=== PATIENT | female | born 1980 | race Caucasian/White ===

== ENCOUNTER → 2018-06-11 15:53 | Outpatient (CLI) | payer OTHER, SELFPAY ==
[2018-06-11 17:00] LABS: Alanine Aminotransferase 27 IU/L (9-52); Albumin 4.7 g/dL (3.5-5.0); Albumin Globulin Ratio 1.7 (1.0-2.8); Alkaline Phosphatase 51 U/L (38-126); Aspartate Aminotransferase 21 IU/L (14-36); Bilirubin Total 0.6 mg/dL (0.2-1.3); Blood Urea Nitrogen 18 mg/dL (7-17); Calcium 9.4 mg/dL (8.4-10.2); Carbon Dioxide 24 mmol/L (22-32); Chloride 104 mmol/L (98-107); Cholesterol 161 mg/dL (140-199); Estimated Glomerular Filt Rate > 60.0 mL/min (>60); Globulin 2.7 g/dL (1.7-4.1); Glucose 85 mg/dL (70-100); HDL Cholesterol 75 mg/dL (40-60); HEMOLYSIS < 15 (0-50); LDL Cholesterol Calculated 68 mg/dL (<100); Potassium 4.3 mmol/L (3.4-5.1); Sodium 139 mmol/L (137-145); Total Protein 7.4 g/dL (6.3-8.2); Triglycerides 89 mg/dL (35-150)
== END ==
PROVIDERS: Family Provider Family Medicine; PCP Family Medicine; Visit Provider Family Medicine
DX: R10.11 Right upper quadrant pain (principal); Z13.1 Encounter for screening for diabetes mellitus; Z13.220 Encounter for screening for lipoid disorders
CPT/HCPCS: 36415; 80053; 80061

== ENCOUNTER → 2018-06-17 15:20 | Outpatient (CLI) | payer OTHER, SELFPAY ==
--- NOTE | 2018-06-17 15:22 | DI.MG.S_ITS ---
BILATERAL DIGITAL SCREENING MAMMOGRAM 3D/2D WITH CAD: 06/17/2018 CLINICAL: Routine screening. No prior exams were available for comparison. The tissue of both breasts is extremely dense, which lowers the sensitivity of mammography. Current study was also evaluated with a Computer Aided Detection (CAD) system. No significant masses, calcifications, or other findings are seen in either breast. IMPRESSION: NEGATIVE There is no mammographic evidence of malignancy. A 1 year screening mammogram is recommended. This exam was interpreted at Station ID: [id number]. NOTE: For mammograms, a report in lay terms will be sent to the patient. Approximately 15% of breast malignancies will not be visualized mammographically. In the management of a palpable breast mass, a negative mammogram must not discourage biopsy of a clinically suspicious lesion. Electronically Signed By: Thony aparicio/maikel:06/17/2018 16:40:54 letter sent: Normal Exam ACR BI-RADS Category 1: Negative 3341F
== END ==
PROVIDERS: Family Provider Family Medicine; PCP Family Medicine; Visit Provider Family Medicine
DX: Z12.31 Encounter for screening mammogram for malignant neoplasm of breast (principal)
CPT/HCPCS: 77063; 77067

== ENCOUNTER → 2019-06-18 08:18 | Outpatient (CLI) | payer OTHER, SELFPAY ==
--- NOTE | 2019-06-18 08:19 | DI.MG.S_ITS ---
BILATERAL DIGITAL SCREENING MAMMOGRAM 3D/2D WITH CAD: 06/18/2019 CLINICAL: Routine screening. Comparison is made to exam dated: 06/17/2018 [facility]. The tissue of both breasts is extremely dense, which lowers the sensitivity of mammography. Current study was also evaluated with a Computer Aided Detection (CAD) system. No significant masses, calcifications, or other findings are seen in either breast. There has been no significant interval change. IMPRESSION: NEGATIVE There is no mammographic evidence of malignancy. A 1 year screening mammogram is recommended. This exam was interpreted at Station ID: [id number]. NOTE: For mammograms, a report in lay terms will be sent to the patient. Approximately 15% of breast malignancies will not be visualized mammographically. In the management of a palpable breast mass, a negative mammogram must not discourage biopsy of a clinically suspicious lesion. Electronically Signed By: Radha avalos/maikel:06/21/2019 08:31:05 letter sent: Normal Exam ACR BI-RADS Category 1: Negative 3341F
== END ==
PROVIDERS: Family Provider Family Medicine; PCP Family Medicine; Referring Provider Family Medicine; Visit Provider Family Medicine
DX: Z12.31 Encounter for screening mammogram for malignant neoplasm of breast (principal)
CPT/HCPCS: 77063; 77067

== ENCOUNTER → 2020-07-20 07:03 | Outpatient (CLI) | payer OTHER, SELFPAY ==
[2020-07-20 08:12] LABS: Add Manual Diff / Slide Review NO; Basophils Absolute Auto 0 /uL (0-100); Basophils Percent Auto 0.6 % (0-2); Eosinophils Absolute Auto 300 /uL (0-450); Eosinophils Percent Auto 4.1 % (2-4); Hematocrit 39.9 % (36-46); Hemoglobin 13.7 g/dL (12.0-16.0); Lymphocytes Absolute Auto 1800 /uL (1100-4500); Lymphocytes Percent Auto 26.3 % (25-40); Mean Corpuscular HGB Conc 34.4 % (30-36); Mean Corpuscular Hemoglobin 29.9 PG (26-34); Monocytes Absolute Auto 400 /uL (0-900); Monocytes Percent Auto 5.6 % (3-14); Neutrophils Absolute Auto 4400 /uL (1500-7000); Neutrophils Percent Auto 63.4 % (50-75); Platelet Count 241 X10^3/uL (150-400); Red Blood Cell Count 4.58 X10^6/uL (4.0-5.2); Red Cell Distribution Width 12.5 % (11.6-14.8); White Blood Cell Count 6.9 X10^3/uL (4.5-11.0)
[2020-07-20 08:27] LABS: Alanine Aminotransferase 14 IU/L (<35); Albumin 4.7 g/dL (3.5-5.0); Albumin Globulin Ratio 1.7 (1.0-2.8); Alkaline Phosphatase 46 U/L (38-126); Aspartate Aminotransferase 21 IU/L (14-36); BUN Creatinine Ratio 17.4 (6-22); Bilirubin Total 0.6 mg/dL (0.2-1.3); Blood Urea Nitrogen 16 mg/dL (7-17); Calcium 9.4 mg/dL (8.4-10.2); Carbon Dioxide 27 mmol/L (22-32); Chloride 106 mmol/L (98-107); Cholesterol 152 mg/dL (140-199); Estimated Glomerular Filt Rate > 60.0 mL/min (>60); Globulin 2.8 g/dL (1.7-4.1); Glucose 94 mg/dL (70-100); HDL Cholesterol 52 mg/dL (40-60); HEMOLYSIS < 15 (0-50); LDL Cholesterol Calculated 82 mg/dL (<100); Potassium 4.4 mmol/L (3.4-5.1); Sodium 139 mmol/L (137-145); Total Protein 7.5 g/dL (6.3-8.2); Triglycerides 89 mg/dL (35-150)
[2020-07-20 09:13] LABS: TSH w/ Reflex to FT4 2.28 uIU/mL (0.47-4.68)
== END ==
PROVIDERS: Family Provider Family Medicine; PCP Family Medicine; Referring Provider Family Medicine; Visit Provider Family Medicine
DX: Z00.00 Encounter for general adult medical examination without abnormal findings (principal)
CPT/HCPCS: 36415; 80053; 80061; 84443; 85025

== ENCOUNTER → 2021-10-12 08:20 | Outpatient (CLI) | payer OTHER, SELFPAY ==
[2021-10-12 09:22] LABS: Add Manual Diff / Slide Review NO; Basophils Absolute Auto 0 /uL (0-100); Basophils Percent Auto 0.4 % (0-2); Eosinophils Absolute Auto 200 /uL (0-450); Eosinophils Percent Auto 3.2 % (2-4); Hematocrit 39.1 % (36-46); Hemoglobin 13.8 g/dL (12.0-16.0); Lymphocytes Absolute Auto 1700 /uL (1100-4500); Lymphocytes Percent Auto 22.7 % (25-40); Mean Corpuscular HGB Conc 35.3 % (30-36); Mean Corpuscular Hemoglobin 30.1 PG (26-34); Mean Corpuscular Volume 85.4 fL (80-100); Monocytes Absolute Auto 400 /uL (0-900); Monocytes Percent Auto 5.3 % (3-14); Neutrophils Absolute Auto 5000 /uL (1500-7000); Neutrophils Percent Auto 68.4 % (50-75); Platelet Count 236 X10^3/uL (150-400); Red Blood Cell Count 4.58 X10^6/uL (4.0-5.2); Red Cell Distribution Width 12.5 % (11.6-14.8); White Blood Cell Count 7.3 X10^3/uL (4.5-11.0)
[2021-10-12 09:49] LABS: Alanine Aminotransferase 14 IU/L (<35); Albumin 4.3 g/dL (3.5-5.0); Albumin Globulin Ratio 1.5 (1.0-2.8); Alkaline Phosphatase 44 U/L (38-126); Aspartate Aminotransferase 22 IU/L (14-36); BUN Creatinine Ratio 19.3 (6-22); Bilirubin Total 0.5 mg/dL (0.2-1.3); Blood Urea Nitrogen 16 mg/dL (7-17); Calcium 8.6 mg/dL (8.4-10.2); Carbon Dioxide 22 mmol/L (22-32); Chloride 110 mmol/L (98-107); Cholesterol 160 mg/dL (140-199); Estimated Glomerular Filt Rate > 60 mL/min (>60); Globulin 2.9 g/dL (1.7-4.1); Glucose 91 mg/dL (70-100); HDL Cholesterol 58 mg/dL (40-60); HEMOLYSIS 29 (0-50); LDL Cholesterol Calculated 91 mg/dL (<100); Potassium 4.3 mmol/L (3.4-5.1); Sodium 139 mmol/L (137-145); Total Protein 7.2 g/dL (6.3-8.2); Triglycerides 57 mg/dL (35-150)
[2021-10-12 10:05] LABS: TSH w/ Reflex to FT4 1.44 uIU/mL (0.47-4.68)
[2021-10-12 10:32] LABS: Follicle Stimulating Hormone 9.48 mIU/mL; Luteinizing Hormone 6.24 mIU/mL
== END ==
PROVIDERS: Family Provider Family Medicine; PCP Family Medicine; Referring Provider Family Medicine; Visit Provider Family Medicine
DX: N92.6 Irregular menstruation, unspecified (principal); N95.1 Menopausal and female climacteric states
CPT/HCPCS: 36415; 80053; 80061; 83001; 83002; 84443; 85025

== ENCOUNTER 2022-08-19 13:48 | Day surgery (SDC) | payer OTHER, SELFPAY ==
[2022-07-17 12:06] VITALS: BMI 29.8
[2022-08-19 14:03] VITALS: BMI 29.8
[2022-08-19 14:12] VITALS: BP 134/83; PULSE 86; RESP 16; TEMP 36.5; O2SAT 100
--- NOTE | 2022-08-19 15:38 | PM.HP.1 ---
History of Present Illness History of Present Illness Date Patient Seen: 08/19/22 Time Patient Seen: 15:38 Chief complaint: [facility] [place] Narrative: Andres was seen in my office 06/27/22 she tells me that today not much has changed in her symptoms. She still has the same area just above her umbilicus that is tender to the touch and feels like there is a lump underneath of it. This is a site where she actually had a drain coming from after surgery. Complicated appendectomy in 2015. She wonders if that area actually never fully healed or closed. Otherwise she is eating normally and not complaining of nausea or other digestive issues but the pain is persistent and she would like to proceed with the repair. Ultrasound done around the time of the visit showed a supra umbilical hernia. [facility] Medical History Eustachian tube dysfunction Surgical History History of appendectomy (~08/2015) Family History Mother Age: 62 Hypertension Grandfather Tobacco use Grandmother Tobacco use Osteoporosis Social History household members: spouse Smoking Status: Never smoker alcohol intake: current Meds Home Medications and Allergies Home Medications Medication Instructions Recorded Confirmed Type No Known Home Medications 05/27/18 06/27/22 History Allergies Allergy/AdvReac Type Severity Reaction Status Date / Time Penicillins [PENICILLINS] Allergy Unknown RASH Verified 08/19/22 14:01 rifaximin [RIFAXIMIN] AdvReac Intermediate Vomiting Verified 08/19/22 14:19 Exam Vital Signs (past 8 hours): - 08/19/22 14:12 Temperature 97.7 F Pulse Rate 86 Respiratory Rate 16 Blood Pressure 134/83 Pulse Oximetry 100 Oxygen Delivery Method Room Air Oxygen Delivery Method Room Air Const General: cooperative, healthy appearing and comfortable Orientation: alert, awake and oriented x3 HENMT Head: normal to inspection Eyes General: appearance normal, both eyes and all related structures Resp Effort & Inspection: normal respiratory effort and able to speak in complete sentences Cardio Pulses: radial pulses present GI Inspection: incision Palpation: soft and tender (Around the hernia location underneath the scar just above the umbilicus) Assessment & Plan Assessment and plan (1) Port-site hernia: Status: Acute Assessment & Plan narrative: Patient would like to pursue repair of this small hernia.? Given that it is quite small I think old-fashioned open repair will do quite well and probably can keep the incision fairly small.? I explained that I usually will place mesh if I can fit it into the defect without disrupting the fascial layers.? If the hernia itself is so small that I would have to open the fascia further to fit mesh I generally will simply repair the hernia with few interrupted sutures.? The risks of the procedure include but are not limited to bleeding infection and damage to underlying structures like bowel.? This is very rare.? She understands the risks and would like to proceed.?
[2022-08-19] MEDS: CEFAZOLIN 2 GM/100 ML PREMIX 100 ML IV (16:20)
--- NOTE | 2022-08-19 16:36 | SUR.OPER ---
Supine on padded OR bed, head on pillow, arms secured on padded arm boards at <90 degrees abduction, legs uncrossed, safety belt at thigh, tape over blanket over lower legs.
[2022-08-19] MEDS: LACTATED RINGERS 1,000 ML 42 ML IV (17:00)
[2022-08-19] MEDS: BUPIVACAINE 0.25% (PF) 30 ML, EPINEPHrine 0.15 MG INJ (17:02)
[2022-08-19 17:20] VITALS: BP 99/51; PULSE 91; RESP 12; TEMP 36.5; O2SAT 98
[2022-08-19 17:25] VITALS: BP 109/61; PULSE 91; RESP 16; TEMP 36.5; O2SAT 99
[2022-08-19 17:30] VITALS: BP 124/69; PULSE 94; RESP 15; TEMP 36.4; O2SAT 98
[2022-08-19] MEDS: OXYCODONE IR 5 MG TABLET PO (17:34)
[2022-08-19] MEDS: HYDROMORPHONE 2 MG INJ IV (17:39)
[2022-08-19 17:40] VITALS: BP 124/69; PULSE 87; RESP 12; O2SAT 99
[2022-08-19] MEDS: ONDANSETRON 4 MG/2 ML INJ IV (17:44)
[2022-08-19 18:02] VITALS: BP 127/69; PULSE 82; RESP 18; TEMP 36.4; O2SAT 99
--- NOTE | 2022-08-26 17:34 | P.OP_ITS ---
Operative Date/Time/Diagnoses Date of procedure: 08/19/22 Pre-op diagnosis: Small port site hernia Post-op diagnosis: same Procedure & Clinicians Procedure: Port site hernia repair Same procedure as scheduled: Yes Indications: This area underlying a previous port site where a drain had been placed in the abdomen is highly symptomatic and tender. Surgeon: Marley Staples Click Yes if Unassisted: Yes Anesthesia Type: General Operative Notes Findings: The defect that was seen was approximately 3 cm in size. There was a small corner of bowel that was incarcerated within it. It was not possible to reduce this small bowel gently without increasing the size of the hernia slightly to release it. The hernia was then repaired with a small Ventralex mesh. Specimen(s): none sent Procedure in detail: Patient was taken to the operating room and placed supine on the operating room table. Antibiotics were administered and bilateral SCDs were in place. General endotracheal anesthesia was induced and a time-out was performed. Next a local anesthetic was infused overlying the area of the port site and hernia. An incision was made overlying this and carried down carefully through the subcutaneous tissues. The hernia defect was delineated by reaching the anterior abdominal wall fascia and dissecting carefully around the hernia sac. The h ernia sac was quite thin and it was apparent that a small piece of small bowel was seen within this sac. The bowel was very tightly incarcerated within the defect. In order to return the bowel to the abdomen and reduced the hernia in a way gentle enough not to cause injury I needed to open the hernia defect slightly to release the sac. After this maneuver the sac returned easily to the abdominal cavity. I used a finger to make sure that there was ample space underlying the fascia to accommodate a small Ventralex mesh. The mesh was then placed into the abdomen and secured to the fascial edge using a 2-0 Prolene suture. Finally an 0 Prolene suture was used to close the fascial defect over top of the mesh. A 3-0 Vicryl was used to close subcutaneous tissues and the skin was closed with a 4-0 Monocryl in a running fashion. The skin was dressed with Steri-Strips and the patient went in good condition to the postoperative care unit the EBL was minimal and there were no complications.
== END 2022-08-19 18:12 | disposition home or self-care (01) ==
PROVIDERS: Family Provider Family Medicine; PCP Family Medicine; Referring Provider Surgery; Visit Provider Surgery
PROC: (CPT 49594; principal; 2022-08-19 15:15)
DX: K43.0 Incisional hernia with obstruction, without gangrene (principal)
CPT/HCPCS: 49594; J0171; J0690; J1100; J1170; J1885; J2250; J2405; J2704; J3010

== ENCOUNTER → 2022-11-28 08:16 | Outpatient (CLI) | payer OTHER, SELFPAY ==
--- NOTE | 2022-11-28 09:25 | DI.MG.S_ITS ---
BILATERAL DIGITAL DIAGNOSTIC MAMMOGRAM 3D/2D: 11/28/2022 CLINICAL: Bilateral breast pain. Comparison is made to exams dated: 06/18/2019 mammogram and 06/17/2018 mammogram - [facility]. Both breasts are extremely dense, which lowers the sensitivity of mammography (category d />75% glandular tissue). No significant masses, calcifications, or other findings are seen in either breast. IMPRESSION: NEGATIVE There is no abnormality seen in either breast to correspond with the diffuse pain, however, clinical followup is recommended. There is no mammographic evidence of malignancy. A 1 year screening mammogram is recommended. Based on Tyrer-Cuzick model (a risk assessment model), the patient's lifetime risk is 24.4% and her 10 year risk is 4.4%. If a patient has an elevated risk, a more comprehensive evaluation should be considered and/or a referral to a genetic counselor. The [place] [employer], [employer], and NCCN Guidelines advise the consideration of Breast MRI as an adjunct to screening mammography in patients whose Lifetime risk to develop breast cancer is 20% or higher. This exam was interpreted at Station ID: [id number]. NOTE: For mammograms, a report in lay terms will be sent to the patient. Approximately 15% of breast malignancies will not be visualized mammographically. In the management of a palpable breast mass, a negative mammogram must not discourage biopsy of a clinically suspicious lesion. Electronically Signed By: Dion david/maikel:11/28/2022 10:03:29 letter sent: Clinical Evaluation ACR BI-RADS Category 1: Negative 3341F
[2022-11-28 09:54] LABS: Alanine Aminotransferase 21 IU/L (<35); Albumin 4.5 g/dL (3.5-5.0); Albumin Globulin Ratio 1.6 (1.0-2.8); Alkaline Phosphatase 56 U/L (38-126); Aspartate Aminotransferase 19 IU/L (14-36); BUN Creatinine Ratio 18.5 (6-22); Bilirubin Total 0.5 mg/dL (0.2-1.3); Blood Urea Nitrogen 15 mg/dL (7-17); Calcium 9.3 mg/dL (8.4-10.2); Carbon Dioxide 25 mmol/L (22-32); Chloride 106 mmol/L (98-107); Cholesterol 176 mg/dL (140-199); Estimated Glomerular Filt Rate > 60 mL/min (>60); Globulin 2.8 g/dL (1.7-4.1); Glucose 87 mg/dL (70-100); HDL Cholesterol 60 mg/dL (40-60); HEMOLYSIS < 15 (0-50); LDL Cholesterol Calculated 99 mg/dL (<100); Potassium 4.2 mmol/L (3.4-5.1); Sodium 139 mmol/L (137-145); Total Protein 7.3 g/dL (6.3-8.2); Triglycerides 84 mg/dL (35-150)
[2022-11-28 10:03] LABS: Thyroid Stimulating Hormone 2.41 uIU/mL (0.47-4.68)
[2022-11-28 10:17] LABS: Add Manual Diff / Slide Review NO; Basophils Absolute Auto 0 /uL (0-100); Basophils Percent Auto 0.3 % (0-2); Eosinophils Absolute Auto 100 /uL (0-450); Eosinophils Percent Auto 1.7 % (2-4); Hematocrit 40.1 % (36-46); Lymphocytes Absolute Auto 2300 /uL (1100-4500); Lymphocytes Percent Auto 28.2 % (25-40); Mean Corpuscular Hemoglobin 29.8 PG (26-34); Mean Corpuscular Volume 85.2 fL (80-100); Monocytes Absolute Auto 400 /uL (0-900); Monocytes Percent Auto 5.3 % (3-14); Neutrophils Absolute Auto 5300 /uL (1500-7000); Neutrophils Percent Auto 64.5 % (50-75); Platelet Count 270 X10^3/uL (150-400); Red Blood Cell Count 4.71 X10^6/uL (4.0-5.2); Red Cell Distribution Width 12.5 % (11.6-14.8); White Blood Cell Count 8.3 X10^3/uL (4.5-11.0)
== END ==
PROVIDERS: Family Provider Family Medicine; PCP Family Medicine; Referring Provider Family Medicine; Visit Provider Family Medicine
DX: N64.4 Mastodynia (principal); E66.9 Obesity, unspecified; N95.1 Menopausal and female climacteric states; Z13.220 Encounter for screening for lipoid disorders; Z13.29 Encounter for screening for other suspected endocrine disorder
CPT/HCPCS: 36415; 77066; 80053; 80061; 84443; 85025; G0279

== ENCOUNTER → 2023-03-18 09:07 | Outpatient (CLI) | payer OTHER, SELFPAY ==
--- NOTE | 2023-03-18 09:09 | DI.RAD.S_ITS ---
PROCEDURE: XR CERVICAL SPINE 2V OR 3V INDICATIONS: pain mostly left side x 1 mo, intermittent numbness arms TECHNIQUE: 3 view(s) of the cervical spine were acquired. COMPARISON: None. FINDINGS: Bones: No fractures or dislocations to the T1 level. Straightening of the normal cervical lordosis. The lateral masses of C1 appear intact on the odontoid view. No suspicious bony lesions. Soft tissues: No prevertebral soft tissue swelling. IMPRESSION: Loss of lordosis which could be related to muscle spasm, rigidity or simply positional. No significant degenerative changes. Dictated by: Guilherme Russell M.D. on 03/18/2023 at 10:00 Approved by: Guilherme Russell M.D. on 03/18/2023 at 10:01
== END ==
PROVIDERS: Family Provider Family Medicine; PCP Family Medicine; Referring Provider Physician Assistant; Visit Provider Physician Assistant
DX: M54.2 Cervicalgia (principal)
CPT/HCPCS: 72040

== ENCOUNTER → 2024-12-09 07:12 | Outpatient (CLI) | payer OTHER, SELFPAY ==
[2024-12-09 09:03] LABS: Alanine Aminotransferase 18 IU/L (<35); Albumin 4.6 g/dL (3.5-5.0); Albumin Globulin Ratio 1.6 (1.0-2.8); Alkaline Phosphatase 61 U/L (38-126); Blood Urea Nitrogen 16 mg/dL (7-17); Calcium 9.3 mg/dL (8.4-10.2); Carbon Dioxide 23 mmol/L (22-32); Chloride 107 mmol/L (98-107); Estimated Glomerular Filt Rate > 60 mL/min (>60); Globulin 2.8 g/dL (1.7-4.1); Glucose 89 mg/dL (70-99); HEMOLYSIS < 15 (0-50); Potassium 4.2 mmol/L (3.4-5.1); Sodium 139 mmol/L (137-145); Total Protein 7.4 g/dL (6.3-8.2)
[2024-12-09 09:29] LABS: TSH w/ Reflex to FT4 2.65 uIU/mL (0.47-4.68)
[2024-12-10 01:36] LABS: CRP, High Sensitivity 0.77 mg/L (0.00-3.00)
[2024-12-13 02:36] LABS: Insulin Level Total 11.2 uIU/mL (2.6-24.9)
== END ==
PROVIDERS: Family Provider Family Medicine; PCP Family Medicine; Referring Provider Family Medicine; Visit Provider Family Medicine
DX: Z01.419 Encounter for gynecological examination (general) (routine) without abnormal findings (principal); N95.1 Menopausal and female climacteric states
CPT/HCPCS: 36415; 80053; 83525; 84443; 86140